=== PATIENT | female | born 1975 | race Caucasian/White ===

== ENCOUNTER 2025-03-22 10:10 | Day surgery (SDC) | payer BC, OTHER ==
[~2025-03-22] VITALS: Ht 172.7 cm; Wt 93.0 kg
[~2025-03-22 10:10] MED LIST: CEFAZOLIN SODIUM 2 GM in SODIUM CHLORIDE 0.9% 100 ML IV SCH; HYDROCHLOROTH12.5 MG PO; IBLOOD GLUCOSE TEST STRIP 1 EA TEST VI PRN; KETOROLAC TROMETHAMINE 30 MG/ML VIAL ONE; LACTATED RINGER'S 1,000 ML IV SCH; LIDOCAINE HCL 1% 5 ML SDV INJ ONE; PHENTERMINE HCL30 MG PO; TOPAMAX25 MG PO
[2025-03-22 10:28] VITALS: BP 148/81
[2025-03-22] MEDS ORDERED: fentaNYL citrate 100 MCG/2 ML VIAL ONE (10:59)
[2025-03-22] MEDS ORDERED: MIDAZOLAM HCL 2 MG/2 ML VIAL ONE (10:59)
[2025-03-22] MEDS ORDERED: LIDOCAINE HCL 2% 5 ML SDV ONE (10:59)
[2025-03-22] MEDS ORDERED: KETOROLAC TROMETHAMINE 30 MG/ML VIAL ONE (11:04)
[2025-03-22] MEDS ORDERED: HYDROCODONE/ACETA 7.5/325 TAB PO PRN (11:15)
[2025-03-22] MEDS ORDERED: KETOROLAC TROMETHAMINE 15 MG/ML VIAL IV PRN (11:15)
[2025-03-22] MEDS ORDERED: CELECOXIB200 MG PO (12:25)
[2025-03-22] MEDS ORDERED: HYDROCODON-ACE1 EA11 PO (12:25)
--- NOTE | 2025-03-22 12:35 | NUR ---
03/22/25 1235 Riri Martinez 1212- PT ARRIVES TO PACU, SEMI GARAY POSITION, NON REACTIVE TO STIMULUS. OPA IN PLACE, BREATHING EVEN AND NON LABORED, O2 AT 6L PER MASK. LR INFUSING TO RFA IV, ABD SOFT, NON DISTENDED. DRESSING TO RIGHT KNEE SMALL AMOUNT OF SHADOWING, PULSES AND CAP REFILL NORMAL TO RIGHT FOOT. ALL MONITORS IN PLACE. 1220- PT REACTIVE TO TACTILE STIMULUS, ATTEMPTS TO TALK WITH OPA IN PLACE, REMOVED AT THIS TIME. O2 LEFT IN PLACE. REORIENTED TO TIME AND PLACE. PT DENIES NAUSEA, REPORTS A LITTLE PAIN. 1222- MOVED TO ROOM AIR AT THIS TIME. WILL CONTINUE TO MONITOR. 1227- CRYO CUFF PLACED TO RIGHT KNEE. CMS INTACT. 1231- PT REPORTS PAIN WORSENING 12/10, MEDICATED WITH 25 MCG OF FENTANYL FROM OPERATIONS WELDER. 1235- PT RESTING AT THIS TIME. WILL CONTINUE TO MONITOR.
[2025-03-22 12:55] VITALS: BP 145/90
--- NOTE | 2025-03-22 13:02 | NUR ---
1250- PT ARRIVES FROM PACU. VIAL SIGNS OBTAINED. BED IS LOCKED IN THE LOWEST POSITION. CALL LIGHT IN REACH. PT REPORTS 7/10 PAIN. PT IS TO HAVE SOME FOOD AND THEN TAKE PAIN PILL PER REQUEST. PT DENIES NAUSEA. SURGICAL SITE SHOWS A SMALL AMOUNT OF RED DRAINAGE. DISCHARE CRITERIA DISCUSSED AND PT IS UNDERSTANDING.
[2025-03-22] MEDS ORDERED: SEVOFLURANE 250 ML BTL INH ONE (13:29)
[2025-03-22] MEDS ORDERED: TRANEXAMIC ACID IN NACL,ISO-OS 1,000 MG/100 ML PIGGYBACK IV ONE (14:00)
[2025-03-22 14:23] VITALS: BP 145/96
--- NOTE | 2025-03-22 14:43 | NUR ---
1339- PT IS GIVEN PAIN MEDICATION FOR 7/10 PAIN. PT WAS ABLE TO EAT CHOCOLATE PUDDING AND DRINK JUICE. 1345- PT IS UP AT THE SIDE OF THE BED REQUESTING TO USE THE RESTROOM. PT IS ABLE TO AMBULATE INDEPENDENTLY WITH A LIMP. PT IS ABLE TO VOID 200ML OF CLEAR, YELLOW URINE. PT IS ABLE TO SAFELY RETURN TO ROOM INDEPENDENTLY. 1350- UPON WALKING BACK TO THE ROOM PT NOTICES DRAINGE FROM DRESSING THAT HAS SATURATED THE ABD PAD AND STARTED TO SATURATE THE ROLA WRAP. CALL TO DR. MEJIA MADE TO MAKE HIM AWARE OF THE SITUATION. VERBAL ORDERS READ BACK TO CHANGE DRESSING AND GIVEN 1G TXA IV. 1410- DRESSING CHANGED AT THIS TIME WITH HELP FROM GLENN HERRERA. 1417- TXA STARTED, SEE EMAR. 1435- DC INSTRUCTIONS GONE OVER. ALL QUESTIONS AND CONCERNS ANSWERED. PT RESTING IN BED. PT REPORTS PAIN IS 8/10 AFTER THE DRESSING CHANGE BUT DOES NOT WANT PAIN MEDICATION AT THIS TIME SHE IS FEELING "A LITTLE" NAUSEOUS. CALL LIGHT IN REACH. ORANGE JUICE REFILLED PER PT REQUEST.
[2025-03-22 15:14] VITALS: BP 153/92
--- NOTE | 2025-03-22 15:41 | NUR ---
1506- PT UP TO USE THE RESTROOM WITH A STAND AND TURN TRANSFER USING A WHEELCHAIR. MORE RED DRAINAGE NOTED SOAKING THROUGH TO THE ROLA WRAP. DR. MEJIA CALLED AND MADE AWARE. DRESSING TO BE CHANGED AND DC PT, PER DR. MEJIA. 1535- PT IS DRESSED. IV REMOVED. PT REPORTS PAIN IS MUCH BETTER AT 4/10. PT IS ABLE TO TRANSFER TO HOSPITAL WHEELCHAIR INDEPENDENTLY. PT DAUGHTER AT FRONT DOOR. PT IS ABLE TO TRANSFER TO CAR INDEPENDENTLY.
[2025-03-22] MEDS ORDERED: CELECOXIB 200 MG CAP PO SCH (17:00)
[2025-03-22] MEDS ORDERED: DICLOFENAC SOD 75 MG TABEC PO SCH (21:00)
--- NOTE | 2025-03-26 06:46 | OR ---
[facility] [address], [place] [address] Signed DATE OF OPERATION: 03/22/2025 SURGEON: Gorge Dias MD PREOPERATIVE DIAGNOSIS: Lateral meniscus tear, right knee. POSTOPERATIVE DIAGNOSIS: Lateral meniscus tear, right knee. PROCEDURE PERFORMED: Right knee arthroscopy with partial lateral meniscectomy. RADIO REPAIRMAN: None. ANESTHESIA: General. BLOOD LOSS: Minimal. BRIEF HISTORY: Devi is a 49-year-old female with pain and catching in her knee. MRI is consistent with the above. Risks, benefits, and alternatives of surgery were discussed with her and she elected to proceed. DESCRIPTION OF PROCEDURE: Once consent was obtained, she was taken to the operating room. After adequate anesthesia, she was placed on the operating room table. The left leg was flexed, abducted, and externally rotated on a well-padded leg fairchild. The right was placed in a leg fairchild and prepped and draped in a standard sterile fashion. Portal sites were injected with 0.25% Marcaine with epinephrine. Standard inferior lateral and superior lateral portals were established and the scope was introduced in the knee. Arthroscopic findings: The patellofemoral joint was intact with good tracking. Medial and lateral gutters were clear with a small osteophyte in the lateral gutter. ACL and PCL were intact. Medial compartment was completely intact. Lateral compartment showed a complex tear of the lateral meniscus involving pretty much the whole thing. 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 [address], [place] [address] Signed tibia. Grade 2 changes diffusely on the femoral side. Standard inferomedial portal was made after localization using a spinal needle. The straight and curved biters were used to trim the meniscus back to a stable rim. The edges were smoothed and feathered out using the shaver. The chondral flaps on both the femur and tibia were then smoothed as well. The scope was withdrawn after evacuating all the debris. The portals were closed with 3-0 nylon and dressed with Adaptic, ABD, and Mayo wrap. She tolerated the procedure well. All sponge, needle, and instrument counts were correct. Gorge Dias MD BA/NEVA /[id number] Copies: ~ Electronically Signed By: GORGE DIAS MD 03/26/25 0646 PATIENT NAME: DEVI BIRD OPERATIVE REPORT DATE OF : 73 REPORT #: [id number] PHYSICIAN: GORGE DIAS MD PCP: DERREK WINSTON REPORT IS CONFIDENTIAL AND NOT TO BE RELEASED WITHOUT AUTHORIZATION
== END 2025-03-22 15:35 | disposition home or self-care (01) ==
LOC: DS 10:10
PROVIDERS: ATTEND Specialist
PROC: 0SBC4ZZ Excision of Right Knee Joint, Percutaneous Endoscopic Approach (ICD-10-PCS; principal; 2025-03-22 13:30)
DX: S83.281A Other tear of lateral meniscus, current injury, right knee, initial encounter (principal); E78.5 Hyperlipidemia, unspecified
CPT/HCPCS: 01400; A9270; J0688; J1885; J2003; J2250; J2405; J2704; J3010; J7121